=== PATIENT | male | born 1995 | race Caucasian/White ===

== ENCOUNTER 2020-07-25 21:37 | Emergency (ER) | payer MEDICAID ==
[~2020-07-25] VITALS: Ht 172.7 cm; Wt 93.2 kg
[2020-07-25 21:42] VITALS: BP 133/94
[2020-07-25] MEDS ORDERED: NAPR-56 PO (22:00)
[2020-07-25] MEDS ORDERED: PENI250T2 PO (22:00)
[2020-07-25] MEDS ORDERED: HYDROcodone/acetaminophen 5mg/325mg tablet PO ONE (22:05)
== END 2020-07-25 22:19 | disposition home or self-care (01) ==
LOC: ER 21:39
DX: K04.7 Periapical abscess without sinus (principal); Z79.899 Other long term (current) drug therapy
CPT/HCPCS: 99283

== ENCOUNTER 2021-01-06 22:09 | Emergency (ER) | payer MEDICAID ==
[~2021-01-06] VITALS: Ht 172.7 cm; Wt 84.5 kg
[2021-01-06 23:50] VITALS: BP 135/78
== END 2021-01-06 23:56 | disposition home or self-care (01) ==
LOC: ER 22:10
DX: S93.492A Sprain of other ligament of left ankle, initial encounter (principal); M25.572 Pain in left ankle and joints of left foot; X58.XXXA Exposure to other specified factors, initial encounter; Y93.89 Activity, other specified; Y92.89 Other specified places as the place of occurrence of the external cause; Y99.8 Other external cause status
CPT/HCPCS: 73610; 99283

== ENCOUNTER 2021-05-29 11:50 | Emergency (ER) | payer MEDICAID, OTHER ==
[~2021-05-29] VITALS: Ht 172.7 cm; Wt 92.7 kg
[2021-05-29 12:48] VITALS: BP 155/105
== END 2021-05-29 14:22 | disposition home or self-care (01) ==
LOC: ER 11:51
DX: S93.601A Unspecified sprain of right foot, initial encounter (principal); X50.9XXA Other and unspecified overexertion or strenuous movements or postures, initial encounter; Y93.02 Activity, running; Y92.89 Other specified places as the place of occurrence of the external cause; Y99.8 Other external cause status
CPT/HCPCS: 73630; 99283

== ENCOUNTER 2021-10-30 16:09 | Emergency (ER) | payer MEDICAID, OTHER ==
[~2021-10-30] VITALS: Ht 172.7 cm; Wt 81.8 kg
[2021-10-30 16:38] VITALS: BP 150/84
[2021-10-30] MEDS ORDERED: IBUP-1984 PO (17:56)
[2021-10-30] MEDS ORDERED: HYDR-3965 PO (17:56)
== END 2021-10-30 20:22 | disposition home or self-care (01) ==
LOC: ER 16:10
DX: S62.342A Nondisplaced fracture of base of third metacarpal bone, right hand, initial encounter for closed fracture (principal); Z79.899 Other long term (current) drug therapy; W22.8XXA Striking against or struck by other objects, initial encounter; Y93.89 Activity, other specified; Y92.89 Other specified places as the place of occurrence of the external cause; Y99.8 Other external cause status
CPT/HCPCS: 29125; 73110; 73130; 99284